=== PATIENT | female | born 1950 | race Caucasian/White ===

== ENCOUNTER 2018-02-28 11:10 | Emergency (ER) | payer OTHER, MEDICARE ==
[2018-02-28 11:15] VITALS: RESP 18
[2018-02-28] MEDS ORDERED: SODIUM CHLORIDE 0.9% 1,000 ML IV STA (12:07)
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
[2018-02-28 12:54] LABS: ALT 29 U/L (9-52); AST 33 U/L (14-36); Albumin 4.5 g/dL (3.5-5.0); Alkaline Phosphatase 86 U/L (38-126); Anion Gap 11 mmol/L; Blood Urea Nitrogen 25 mg/dL (7-17); Calcium 9.7 mg/dL (8.4-10.2); Carbon Dioxide 26 mmol/L (22-30); Chloride 100 mmol/L (98-107); Glucose 152 mg/dL (74-99); Potassium 4.2 mmol/L (3.5-5.1); Sodium 137 mmol/L (137-145); Total Bilirubin 0.9 mg/dL (0.2-1.3); Total Protein 7.3 g/dL (6.3-8.2)
[2018-02-28 12:58] LABS: Appearance,Urine Clear (Clear); Bilirubin,Urine Negative (Negative); Blood,Urine Negative (Negative); Color,Urine Yellow; Glucose,Urine (UA) Negative (Negative); Ketones,Urine Negative (Negative); Leukocyte Esterase,Urine Negative (Negative); Nitrite,Urine Negative (Negative); PH, Urine 5.5 (5.0-8.0); Protein,Urine Trace (Negative); Specific Gravity,Urine 1.021 (1.001-1.035)
[2018-02-28 12:59] LABS: INR 1.1 (<1.2); Partial Thromboplastin Time 24.6 sec (22.0-30.0)
[2018-02-28] MEDS ORDERED: ONDANSETRON 4 MG/2 ML VIAL IVP STA (13:02)
[2018-02-28] MEDS ORDERED: MORPHINE SULFATE 2 MG/ML SYRINGE IVP STA (13:02)
[2018-02-28 13:03] LABS: Creatine Kinase 171 U/L (30-135)
[2018-02-28 13:09] LABS: Basophils # (A) 0.1 k/uL (0-0.2); Basophils % (A) 1 %; Eosinophils # (A) 0.2 k/uL (0-0.7); Eosinophils % (A) 2 %; HCT 43.9 % (34.0-46.0); HGB 14.9 gm/dL (11.4-16.0); Lymphocytes # (A) 1.9 k/uL (1.0-4.8); Lymphocytes % (A) 20 %; MCH 30.8 pg (25.0-35.0); MCHC 33.8 g/dL (31.0-37.0); MCV 91.1 fL (80.0-100.0); Mean Platelet Volume 7.2; Monocytes # (A) 0.4 k/uL (0-1.0); Monocytes % (A) 4 %; Neutrophils # (A) 6.9 k/uL (1.3-7.7); Neutrophils % (A) 73 %; Platelet Count 234 k/uL (150-450); RBC 4.82 m/uL (3.80-5.40); RDW 12.8 % (11.5-15.5); WBC 9.4 k/uL (3.8-10.6)
[2018-02-28 13:16] LABS: Troponin I <0.012 ng/mL (0.000-0.034)
[2018-02-28 13:22] LABS: Creatine Kinase MB 6.4 ng/mL (0.0-2.4)
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
[2018-02-28 14:37] VITALS: BP 165/77; PULSE 71; TEMP 97.4
== END 2018-02-28 14:45 | disposition home or self-care (01) ==
LOC: EC 11:10
DX: R91.8 Other nonspecific abnormal finding of lung field (principal); R07.89 Other chest pain; E11.9 Type 2 diabetes mellitus without complications; I10 Essential (primary) hypertension; F17.200 Nicotine dependence, unspecified, uncomplicated; Z98.890 Other specified postprocedural states; Z79.4 Long term (current) use of insulin; Z79.899 Other long term (current) drug therapy; Z88.2 Allergy status to sulfonamides; V43.52XA Car driver injured in collision with other type car in traffic accident, initial encounter; Y92.89 Other specified places as the place of occurrence of the external cause
CPT/HCPCS: 36415; 93005; 80053; 82550; 82553; 84484; 85025; 85610; 85730; 81003; 71260; 74177; 99284; 96374; 96375; 96361 ×2; J2405; J2270; Q9967

== ENCOUNTER 2018-03-05 09:01 | Inpatient (IN) | payer OTHER, MEDICARE ==
[2018-03-05] MEDS ORDERED: ORPHENADRINE 30 MG/ML 2 ML VIAL IVP STA (09:23)
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
[2018-03-05] MEDS ORDERED: SODIUM CHLORIDE 0.9% 1,000 ML IV ONE (09:47)
[2018-03-05 10:13] LABS: Anion Gap 9 mmol/L; Blood Urea Nitrogen 19 mg/dL (7-17); Calcium 8.9 mg/dL (8.4-10.2); Carbon Dioxide 27 mmol/L (22-30); Chloride 107 mmol/L (98-107); Glucose 140 mg/dL (74-99); Potassium 4.1 mmol/L (3.5-5.1); Sodium 143 mmol/L (137-145)
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
[2018-03-05] MEDS ORDERED: MORPHINE SULFATE 2 MG/ML SYRINGE IV PRN (10:59)
[2018-03-05] MEDS ORDERED: ONDANSETRON 4 MG/2 ML VIAL IVP PRN (10:59)
[2018-03-05] MEDS ORDERED: NALOXONE 0.4 MG/ML 1 ML VIAL IV PRN (10:59)
[2018-03-05 12:22] LABS: Basophils % (A) 1 %; Eosinophils # (A) 0.3 k/uL (0-0.7); Eosinophils % (A) 4 %; HCT 41.1 % (34.0-46.0); HGB 13.6 gm/dL (11.4-16.0); Lymphocytes # (A) 1.5 k/uL (1.0-4.8); Lymphocytes % (A) 20 %; MCHC 33.1 g/dL (31.0-37.0); MCV 93.7 fL (80.0-100.0); Mean Platelet Volume 7.6; Monocytes # (A) 0.4 k/uL (0-1.0); Monocytes % (A) 5 %; Neutrophils # (A) 5.2 k/uL (1.3-7.7); Neutrophils % (A) 70 %; Platelet Count 204 k/uL (150-450); RBC 4.38 m/uL (3.80-5.40); RDW 13.3 % (11.5-15.5); WBC 7.4 k/uL (3.8-10.6)
[2018-03-05 12:33] LABS: Glucose,Whole Blood 124 mg/dL (75-99)
[2018-03-05] MEDS: METHOCARBAMOL 500 MG TAB PO SCH ×3 (12:37→23:59)
[2018-03-05 13:40] VITALS: BMI 30.7
[2018-03-05] MEDS: HYDROcodone/APAP 5-325MG 1 EACH TAB PO PRN ×2 (13:53→18:56)
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
[2018-03-05 17:16] LABS: Glucose,Whole Blood 179 mg/dL (75-99)
[2018-03-05] MEDS: INSULIN ASPART 100 UNIT/ML 1 ML 10 ML VIAL SQ SCH ×2 (17:24→21:21)
[2018-03-05] MEDS: LIDOCAINE 5% PATCH TOPICAL SCH (17:38)
[2018-03-05 20:37] LABS: Glucose,Whole Blood 149 mg/dL (75-99)
[2018-03-05] MEDS ORDERED: INSULIN NPH 300 UNIT/3 ML VIAL SQ SCH (21:00)
[2018-03-05] MEDS ORDERED: diphenhydrAMINE 50 MG CAP PO SCH (21:00)
[2018-03-05 22:57] VITALS: RESP 16
[2018-03-06 06:08] VITALS: BP 118/74; PULSE 67; TEMP 96.7
[2018-03-06 06:45] LABS: Glucose,Whole Blood 131 mg/dL (75-99)
[2018-03-06 07:44] LABS: Basophils % (A) 1 %; Eosinophils # (A) 0.3 k/uL (0-0.7); Eosinophils % (A) 4 %; HCT 38.1 % (34.0-46.0); HGB 12.6 gm/dL (11.4-16.0); Lymphocytes # (A) 1.8 k/uL (1.0-4.8); Lymphocytes % (A) 24 %; MCH 31.1 pg (25.0-35.0); MCHC 33.1 g/dL (31.0-37.0); MCV 94.2 fL (80.0-100.0); Mean Platelet Volume 7.1; Monocytes # (A) 0.4 k/uL (0-1.0); Monocytes % (A) 5 %; Neutrophils # (A) 4.9 k/uL (1.3-7.7); Neutrophils % (A) 66 %; Platelet Count 207 k/uL (150-450); RBC 4.05 m/uL (3.80-5.40); RDW 13.1 % (11.5-15.5); WBC 7.4 k/uL (3.8-10.6)
[2018-03-06 08:01] LABS: Anion Gap 4 mmol/L; Blood Urea Nitrogen 17 mg/dL (7-17); Calcium 8.8 mg/dL (8.4-10.2); Carbon Dioxide 30 mmol/L (22-30); Chloride 103 mmol/L (98-107); Glucose 123 mg/dL (74-99); Potassium 4.3 mmol/L (3.5-5.1); Sodium 137 mmol/L (137-145)
[2018-03-06] MEDS: INSULIN ASPART 100 UNIT/ML 1 ML 10 ML VIAL SQ SCH (08:06)
[2018-03-06] MEDS: HYDROcodone/APAP 5-325MG 1 EACH TAB PO PRN (08:11)
[2018-03-06] MEDS: METHOCARBAMOL 500 MG TAB PO SCH (08:14)
[2018-03-06] MEDS: LIDOCAINE 5% PATCH TOPICAL SCH (08:16)
[2018-03-06] MEDS ORDERED: LIDOCAINE 5% PATCH TOPICAL SCH (09:00)
[2018-03-06] MEDS ORDERED: CITALOPRAM HYDROBROMIDE 20 MG TAB PO SCH (09:00)
[2018-03-06] MEDS ORDERED: ASPIRIN 81 MG PO SCH (09:00)
[2018-03-06] MEDS ORDERED: ASCORBIC ACID 500 MG TAB PO SCH (09:00)
[2018-03-06] MEDS ORDERED: TRIAMTERENE-HCTZ 37.5-25MG 1 EACH CAP PO SCH (09:00)
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
[2018-03-06 11:35] LABS: Glucose,Whole Blood 137 mg/dL (75-99)
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
[2018-03-07 15:56] LABS: Hemoglobin A1C 6.7 % (4.0-6.0)
== END 2018-03-06 12:22 | disposition home or self-care (01) | DRG 184 ==
LOC: EC 09:01 → 5MS5E 10:57
PROVIDERS: ADMIT Surgery; ATTEND Surgery
DX: S22.42XA Multiple fractures of ribs, left side, initial encounter for closed fracture (principal); S27.329A Contusion of lung, unspecified, initial encounter; J90 Pleural effusion, not elsewhere classified; E11.9 Type 2 diabetes mellitus without complications; E78.5 Hyperlipidemia, unspecified; F17.200 Nicotine dependence, unspecified, uncomplicated; I10 Essential (primary) hypertension; Z79.82 Long term (current) use of aspirin; Z79.4 Long term (current) use of insulin; Z79.899 Other long term (current) drug therapy; Z88.6 Allergy status to analgesic agent; Z88.2 Allergy status to sulfonamides; Z88.8 Allergy status to other drugs, medicaments and biological substances; Z90.710 Acquired absence of both cervix and uterus; Z96.60 Presence of unspecified orthopedic joint implant; V89.2XXA Person injured in unspecified motor-vehicle accident, traffic, initial encounter
CPT/HCPCS: 36415; 71260; 74177; 80048; 83036; 85025; 96361; 96374; 99285